=== PATIENT | female | born 1950 | race Two or more races ===

== ENCOUNTER 2016-09-29 07:37 | Day surgery (SDC) | payer OTHER ==
[2016-09-21 09:44] VITALS: BP 172/91
[~2016-09-29] VITALS: Ht 154.9 cm; Wt 70.0 kg
[~2016-09-29 07:37] MED LIST: BUPIVACAINE/PF-EPI 0.5% 1:200K ONE; ISOSULFAN BLUE 10 MG/ML, 5ML IV ONE; OLME40TA PO; [UNRECOGNIZED DRUG - OTHER]
[2016-09-29] MEDS ORDERED: ALLO100T30 PO (09:01)
[2016-09-29] MEDS ORDERED: AMLO5TAB2 PO (09:01)
[2016-09-29] MEDS ORDERED: LACTATED RINGERS 1,000 ML IV SCH (09:02)
[2016-09-29] MEDS ORDERED: LIDOCAINE 1%, 2ML ONE (09:10)
[2016-09-29] MEDS ORDERED: LIDOCAINE 1%, 2ML SQ PRN (09:30)
[2016-09-29] MEDS ORDERED: MIDAZOLAM 1 MG/ML, 2ML ONE (10:22)
[2016-09-29] MEDS ORDERED: FENTANYL PF 100 MCG/2ML ONE ×3 (10:23→14:05)
[2016-09-29] MEDS ORDERED: CEFAZOLIN 1,000 MG ONE (11:02)
[2016-09-29] MEDS ORDERED: ONDANSETRON 2MG/ML, 2ML ONE (11:02)
[2016-09-29] MEDS ORDERED: DEXAMETHASONE 4 MG/ML, 1ML ONE (11:02)
[2016-09-29] MEDS ORDERED: PROPOFOL 10 MG/ML, 20ML ONE (11:02)
[2016-09-29] MEDS ORDERED: SUCCINYLCHOLINE 20 MG/ML, 10ML ONE (11:02)
[2016-09-29] MEDS ORDERED: METOCLOPRAMIDE 5 MG/ML, 2ML ONE (11:02)
[2016-09-29] MEDS ORDERED: ONDANSETRON 2MG/ML, 2ML IVPush PRN (13:00)
[2016-09-29] MEDS ORDERED: MIDAZOLAM 1 MG/ML, 2ML IV PRN (13:00)
[2016-09-29] MEDS ORDERED: MEPERIDINE/PF 25MG/0.5ML IVPush PRN (13:00)
[2016-09-29] MEDS ORDERED: HYDROmorphone 1 MG/ML, 1ML IV PRN (13:00)
[2016-09-29] MEDS ORDERED: LABETALOL 5MG/ML, 20ML IV PRN (13:00)
[2016-09-29] MEDS ORDERED: OXYcodone 5 MG/5 ML ORAL.SOL UDC ONE ×2 (13:28→13:52)
[2016-09-29] MEDS ORDERED: ACETAMINOPHEN 650 MG/20.3 ML UDC ONE (13:28)
[2016-09-29] MEDS: OXYcodone 5 MG/5 ML ORAL.SOL UDC PO PRN ×3 (13:32→14:06)
[2016-09-29] MEDS: FENTANYL PF 100 MCG/2ML IV PRN ×5 (13:34→14:12)
[2016-09-29] MEDS ORDERED: LABETALOL 5MG/ML, 20ML ONE (13:44)
[2016-09-29] MEDS ORDERED: ACETAMINOPHEN 325 MG TABLET PO PRN ×2 (14:00)
== END 2016-09-29 15:55 | disposition home or self-care (01) ==
LOC: OUT 07:37
PROVIDERS: ATTEND Surgery
DX: C50.411 Malignant neoplasm of upper-outer quadrant of right female breast (principal); F41.9 Anxiety disorder, unspecified; I10 Essential (primary) hypertension; Z98.890 Other specified postprocedural states; Z79.899 Other long term (current) drug therapy; Z83.3 Family history of diabetes mellitus; Z83.49 Family history of other endocrine, nutritional and metabolic diseases
CPT/HCPCS: 19302; 38792; 88305; 88307; 88329; 88333; 88334; A9541; C1729; C9898; J0330; J0690; J1100; J2250; J2405; J2704; J2765; J3010; J3490; J7120

== ENCOUNTER → 2016-12-02 | Outpatient (CLI) | payer OTHER ==
[~2016-12-02] MED LIST changes: +ALLO100T30 PO; +AMLO5TAB2 PO; -BUPIVACAINE/PF-EPI 0.5% 1:200K ONE; -ISOSULFAN BLUE 10 MG/ML, 5ML IV ONE; -OLME40TA PO; +OLME40TA12 PO
== END | disposition home or self-care (01) ==
LOC: ROC 10:29
PROVIDERS: ATTEND Radiology Radiation Oncology
DX: C50.911 Malignant neoplasm of unspecified site of right female breast (principal); I10 Essential (primary) hypertension; F41.9 Anxiety disorder, unspecified; Z90.49 Acquired absence of other specified parts of digestive tract
CPT/HCPCS: 99214; G0463

== ENCOUNTER → 2017-01-19 | Outpatient (CLI) | payer OTHER | END | disposition home or self-care (01) | LOC: ROC 07:33 | PROVIDERS: ATTEND Radiology Radiation Oncology | DX: C50.911 Malignant neoplasm of unspecified site of right female breast (principal) | CPT/HCPCS: 99213; G0463 ==

== ENCOUNTER → 2017-04-14 | Outpatient (CLI) | payer SELFPAY | END | disposition home or self-care (01) | LOC: CFH 14:31 | PROVIDERS: ATTEND Radiology Radiation Oncology | DX: Z13.820 Encounter for screening for osteoporosis (principal); C50.411 Malignant neoplasm of upper-outer quadrant of right female breast; M81.0 Age-related osteoporosis without current pathological fracture; I10 Essential (primary) hypertension | CPT/HCPCS: 77080; 77066 ==

== ENCOUNTER → 2017-10-13 | Outpatient (CLI) | payer OTHER | END | disposition home or self-care (01) | LOC: ROC 07:15 | PROVIDERS: ATTEND Radiology Radiation Oncology | DX: C50.911 Malignant neoplasm of unspecified site of right female breast (principal) | CPT/HCPCS: 99213; G0463 ==

== ENCOUNTER → 2018-05-31 | Outpatient (CLI) | payer OTHER ==
[~2018-05-31] MED LIST changes: +AMLO-150 PO; -AMLO5TAB2 PO
== END | disposition home or self-care (01) ==
LOC: ROC 15:12
PROVIDERS: ATTEND Radiology Radiation Oncology
DX: Z08 Encounter for follow-up examination after completed treatment for malignant neoplasm (principal); C50.911 Malignant neoplasm of unspecified site of right female breast
CPT/HCPCS: 99212; G0463

== ENCOUNTER → 2019-11-01 | Outpatient (CLI) | payer OTHER | END | disposition home or self-care (01) | LOC: CFH 10:03 | PROVIDERS: ATTEND Internal Medicine Hematology & Oncology | DX: Z12.31 Encounter for screening mammogram for malignant neoplasm of breast (principal); N63.0 Unspecified lump in unspecified breast; Z85.3 Personal history of malignant neoplasm of breast | CPT/HCPCS: 76641; 77063; 77067 ==

== ENCOUNTER → 2019-11-07 | Outpatient (CLI) | payer OTHER | END | disposition home or self-care (01) | LOC: CFH 11:02 | PROVIDERS: ATTEND Internal Medicine Hematology & Oncology | DX: C50.411 Malignant neoplasm of upper-outer quadrant of right female breast (principal); M81.0 Age-related osteoporosis without current pathological fracture; M85.89 Other specified disorders of bone density and structure, multiple sites; Z17.0 Estrogen receptor positive status [ER+] | CPT/HCPCS: 77080 ==